=== PATIENT | male | born 1970 | race Caucasian/White ===

== ENCOUNTER 2018-03-10 05:44 | Emergency (ER) | payer OTHER ==
[~2018-03-10] VITALS: Ht 175.2 cm; Wt 81.6 kg
[~2018-03-10 05:44] MED LIST: ACID CONTROLLER20 M1 PO; ATIVAN1 MG PO; BLEPH-10 15 ML15 ML OPH; CYMBALTA60 MG PO; HYDROXYZINE PAM50 MG PO; LISINOPRIL AND1 TAB PO; LISINOPRIL10 MG PO; NORCO 5-325 TA1 EACH PO; XANAX1 MG PO
[2018-03-10] MEDS ORDERED: ATORVASTATIN CA20 M1 PO (05:52)
[2018-03-10] MEDS ORDERED: BUSPIRONE HCL30 MG PO (05:52)
[2018-03-10] MEDS ORDERED: MIRTAZAPINE15 M2 PO (05:53)
[2018-03-10] MEDS ORDERED: PREDNISONE50 MG PO (07:40)
[2018-03-10] MEDS ORDERED: CYCLOBENZAPRINE10 MG PO (07:40)
[2018-03-11] MEDS ORDERED: NAPROSYN500 MG PO (14:01)
== END 2018-03-10 07:55 | disposition home or self-care (01) ==
LOC: ED 05:44
DX: S39.012A Strain of muscle, fascia and tendon of lower back, initial encounter (principal); M62.830 Muscle spasm of back; I10 Essential (primary) hypertension; Z79.899 Other long term (current) drug therapy; X50.9XXA Other and unspecified overexertion or strenuous movements or postures, initial encounter; Y93.89 Activity, other specified; Y92.89 Other specified places as the place of occurrence of the external cause; Y99.9 Unspecified external cause status

== ENCOUNTER 2018-03-11 13:30 | Emergency (ER) | payer OTHER ==
[~2018-03-11] VITALS: Ht 172.7 cm; Wt 81.6 kg
[~2018-03-11 13:30] MED LIST changes: +ATORVASTATIN CA20 M1 PO; +BUSPIRONE HCL30 MG PO; +CYCLOBENZAPRINE10 MG PO; +MIRTAZAPINE15 M2 PO; +PREDNISONE50 MG PO
[2018-03-11] MEDS ORDERED: NAPROSYN500 MG PO (14:01)
== END 2018-03-11 13:45 | disposition home or self-care (01) ==
LOC: ED 13:30
DX: M54.41 Lumbago with sciatica, right side (principal); F17.200 Nicotine dependence, unspecified, uncomplicated; Z79.899 Other long term (current) drug therapy

== ENCOUNTER 2018-03-30 06:04 | Emergency (ER) | payer OTHER ==
[~2018-03-30] VITALS: Ht 167.6 cm; Wt 82.6 kg
[~2018-03-30 06:04] MED LIST changes: +NAPROSYN500 MG PO
[2018-03-30] MEDS ORDERED: ZESTORETIC 10-1 EACH PO (06:17)
[2018-03-30] MEDS ORDERED: FAMOTIDINE20 M1 PO (06:17)
[2018-03-30] MEDS ORDERED: Motrin,Rufen800 MG PO (07:17)
== END 2018-03-30 07:30 | disposition home or self-care (01) ==
LOC: ED 06:04
DX: S60.222A Contusion of left hand, initial encounter (principal); F17.200 Nicotine dependence, unspecified, uncomplicated; I10 Essential (primary) hypertension; Z79.899 Other long term (current) drug therapy; W22.8XXA Striking against or struck by other objects, initial encounter; Y93.89 Activity, other specified; Y92.89 Other specified places as the place of occurrence of the external cause; Y99.9 Unspecified external cause status

== ENCOUNTER 2019-02-21 10:42 | Emergency (ER) | payer OTHER ==
[~2019-02-21] VITALS: Wt 86.2 kg
[~2019-02-21 10:42] MED LIST changes: +FAMOTIDINE20 M1 PO; +Motrin,Rufen800 MG PO; +ZESTORETIC 10-1 EACH PO
[2019-02-21] MEDS ORDERED: DOXYCYCLINE100 M3 PO (11:28)
[2019-02-21] MEDS ORDERED: PROVENTIL HFA6.7 GM INH (11:28)
[2019-02-21] MEDS ORDERED: PREDNISONE20 M1 PO (11:28)
[2019-02-21] MEDS ORDERED: TESSALON PERLE100 M1 PO ×2 (11:28→11:43)
== END 2019-02-21 12:52 | disposition home or self-care (01) ==
LOC: ED 10:42
DX: J40 Bronchitis, not specified as acute or chronic (principal); R11.10 Vomiting, unspecified; R19.7 Diarrhea, unspecified; Z79.899 Other long term (current) drug therapy

== ENCOUNTER 2020-09-14 07:47 | Emergency (ER) | payer SELFPAY ==
[~2020-09-14] VITALS: Ht 170.1 cm; Wt 72.6 kg
[~2020-09-14 07:47] MED LIST changes: +DOXYCYCLINE100 M3 PO; +PREDNISONE20 M1 PO; +PROVENTIL HFA6.7 GM INH; +TESSALON PERLE100 M1 PO
[2020-09-14] MEDS ORDERED: PROVENTIL HFA6.7 GM INH ×2 (08:09)
[2020-09-14] MEDS ORDERED: PREDNISONE50 MG PO ×2 (08:09)
== END 2020-09-14 08:28 | disposition home or self-care (01) ==
LOC: ED 07:47
DX: J40 Bronchitis, not specified as acute or chronic (principal); Z79.899 Other long term (current) drug therapy; Z20.828 Contact with and (suspected) exposure to other viral communicable diseases

== ENCOUNTER → 2021-01-09 | Outpatient (CLI) | payer SELFPAY | END | disposition home or self-care (01) | LOC: COVID19 13:44 | PROVIDERS: ATTEND Internal Medicine | DX: Z11.52 Encounter for screening for COVID-19 (principal) ==